=== PATIENT | male | born 1980 | race Caucasian/White ===

== ENCOUNTER → 2016-08-18 | Outpatient (CLI) | payer BC ==
[~2016-08-18] MED LIST: OXYC-57 PO
--- NOTE | 2016-08-18 10:28 | DIAGNOSTIC IMAGING REPORT ---
LEFT INGUINAL ULTRASOUND FOR HERNIA CLINICAL HISTORY: LEFT GROIN PAIN COMPARISON STUDY: None. FINDINGS: Small fat-containing reducible left inguinal hernia. No lymphadenopathy or fluid collections identified. IMPRESSION: Small fat-containing reducible left inguinal hernia. Electronically signed by: Gustavo Trujillo M.D. 08/18/2016 10:26 AM
== END | disposition home or self-care (01) ==
LOC: C.ULTRBC 09:47
PROVIDERS: ATTEND Family Medicine
DX: K40.90 Unilateral inguinal hernia, without obstruction or gangrene, not specified as recurrent (principal)

== ENCOUNTER → 2016-09-17 | Outpatient (CLI) | payer BC ==
[2016-09-17 17:39] LABS: BASO % 0.5 %; BASO ABS # 0.04 K/uL (0-0.2); COMPLETE YES; EOS % 1.4 %; HEMATOCRIT 45.2 % (42-52); IG% 0.5 %; LYMPH % 28.7 %; LYMPH ABS # 2.46 K/uL (1.2-3.4); MEAN CELL VOLUME 90.4 fL (80-100); MEAN CORPUSCULAR HEMOGLOBIN 33.4 pg (25-34); MEAN CORPUSCULAR HGB CONC 36.9 g/dl (32-36); MEAN PLATELET VOLUME 10.8 fL (7.4-10.4); NEUT % 57.9 %; PLATELET COUNT 167 K/uL (130-400); WHITE BLOOD COUNT 8.56 K/uL (4.8-10.8)
[2016-09-17 18:08] LABS: BLOOD UREA NITROGEN 15 mg/dl (7-18); BUN/CREATININE RATIO 13.8 (10-20); CALCIUM 9.3 mg/dl (8.5-10.1); CARBON DIOXIDE 29 mmol/L (21-32); CHLORIDE 103 mmol/L (98-107); GLUCOSE 89 mg/dl (70-99); SODIUM 140 mmol/L (136-145)
== END | disposition home or self-care (01) ==
LOC: C.LAB 16:34
PROVIDERS: ATTEND Surgery
DX: K40.90 Unilateral inguinal hernia, without obstruction or gangrene, not specified as recurrent (principal)

== ENCOUNTER → 2016-10-03 | Day surgery (SDC) | payer BC ==
[2016-09-25 08:27] VITALS: Ht 177.8 cm; Wt 76.4 kg
[~2016-10-03] VITALS: Ht 177.8 cm; Wt 76.4 kg
[~2016-10-03] MED LIST changes: +ATROPINE SULFATE 0.1 MG/ML 5ML SYR IV PRN; +BACITRACIN 50000 UNIT VIAL ONE; +BUPIVACAINE 0.5 % 5 MG/1 ML MPF 30ML VIAL ONE; +CEFAZOLIN SOD 1000MG/55 ML D5W IV ONE; +DEXAMETHASONE SOD INJ 4 MG/ML VIAL ONE; +EpHEDrine SULFATE INJ 50 MG/ML AMP IV PRN; +FENTANYL CITRATE INJ 50 MCG/1 ML 2 ML VIAL IV PRN; +FENTANYL CITRATE INJ 50 MCG/1 ML 2 ML VIAL ONE; +GLYCOPYRROLATE INJ 0.2 MG/ML VIAL ONE; +HYDROmorphone INJ 1 MG/ML SYR IV PRN; +LACTATED RINGER'S 1000ML 1,000 ML IV SCH; +LIDOCAINE HCL 2% 2 ML VIAL (20MG/ML) ONE; +MIDAZOLAM HCL 1 MG/ML 2ML VIAL ONE; +MoRPHine SULFATE 2 MG/ML CARP IV PRN; +NEOSTIGMINE METHYLSULFATE 5 MG/5 ML SYR ONE; +ONDANSETRON INJ 2 MG/ML 2 ML VIAL IV PRN; +ONDANSETRON INJ 2 MG/ML 2 ML VIAL ONE; +OXYCODONE/ACETAMINOPHEN 5-325 TAB PO PRN; +PROPOFOL IV EMULSION 10 MG/ML 20 ML VIAL IV ONE; +ROCURONIUM BROMIDE 10 MG/ML 5 ML VIAL ONE; +SODIUM CHLORIDE 0.9% INJ 10 ML VIAL ONE
--- NOTE | 2016-10-03 07:15 | History & Physical Bridge Note ---
H&P Re-Evaluation Bridge Note: I have examined the patient, reviewed the History & Physical and in the interval since the performance of the History & Physical I have noted the following changes of clinical significance: No changes noted pt marked SO at bedside
--- NOTE | 2016-10-03 08:13 | Discharge Instructions ---
Discharge Instructions Visit Reason for Visit: Left Inguinal Hernia Discharge Discharge Diagnosis / Problem: Inguinal hernia repair Activity Recommendations Activity Limitations: as noted below Lifting Limitations: no more than 10 pounds Shower/Bathe: tomorrow Driving or Machine Use: resume 3 days after discharge Anesthesia . Post Anesthesia Instructions: If you have had General Anesthesia or IV Sedation: * Do not drive today. * Resume driving when surgeon permits. * Do not make important decisions or sign legal documents today. * Call surgeon for: 1. Temperature elevations greater than 101 degrees F. 2. Uncontrollable pain. 3. Excessive bleeding. 4. Persistent nausea and vomiting. 5. Medication intolerance (nausea, vomiting or rash). * For nausea and vomiting use only clear liquids such as: tea, soda, bouillon until nausea subsides, then gradually increase diet as tolerated. * If you have any concerns or questions, call your surgeon's office. If physician is unavailable and it is an emergency, call 911 or go to the nearest emergency room. . Instructions / Follow-Up Instructions / Follow-Up Dr. Cherry's office in 1 week, call [phone] if you do not already have an appt or with any questions Ice groin off and on alternating every 20 minutes until bedtime Diet Recommendations Recommended Home Diet: no limitations Pending Studies Studies pending at discharge: no Medical Emergencies . Who to Call and When: Medical Emergencies: If at any time you feel your situation is an emergency, please call 911 immediately. . Non-Emergent Contact Call Non-Emergent contact if: you have a fever, temperature is above 101.5, your pain is not controlled, wound has increased redness, wound has increased pain . . "Provider Documentation" section prepared by Timmy Rangel.
--- NOTE | 2016-10-03 09:16 | [facility] Post Operative Brief Note ---
Immediate Operative Summary Operative Date Oct 03, 2016. Pre-Operative Diagnosis Left Inguinal Hernia Post-Operative Diagnosis Same and Direct Hernia, Lipoma of the Cord Procedure(s) Performed Left Inguinal Open Hernia Repair With marlex Mesh and excision lipoma cord Surgeon Dr. Cherry [employer] Surgeon(s) Alex Rangel PA-C Estimated Blood Loss 3.5ml Findings direct defect and large lipoma cord Specimens A. Left Inguinal Cord and Lipoma
--- NOTE | 2016-10-03 09:50 | OPERATIVE REPORT ---
DATE OF OPERATION: 10/03/2016 SURGEON: Dr. Cherry. ANALYTICAL TECH: Timmy Rogers PA-C. PREOPERATIVE DIAGNOSIS: Left inguinal hernia. POSTOPERATIVE DIAGNOSES: Left direct inguinal hernia and lipoma of the cord. PROCEDURE: Open repair of left direct inguinal hernia with Marlex mesh reinforcement and excision lipoma of the cord. SUMMARY: The patient was brought into the operating room theater under general anesthesia. The left lower quadrant was prepped and scrubbed with solution of Betadine. We used 0.5% Marcaine without epinephrine to infiltrate 2 fingerbreadths medial anterior superior iliac crest. Skin wheal was raised and then went subfascially external oblique. An incision about 2.5 to 3 inches long was made parallel to the inguinal ligament, deepened through subcutaneous tissue. Small vessels that were prominent venous were ligated with 2-0 silk. We went onto the external oblique. More local was used on the external oblique . Then we opened the fascia of the external oblique all the way to the external ring. We could see at the external ring there was some incarcerated chronic type of fatty tissue. At this point, we identified the nerve and placed it superiorly and bifurcated half way up into the canal, placed this superiorly underneath the hemostats that were tagged onto the external oblique. We elevated the cord and its structure over a Ennice drain, identified large lipoma that we freed from the cord, and ligated at its base with 2-0 silk and resected it. We similarly identified a direct defect, no real indirect component, that we were able to return retroperitoneally only by placing some transversalis fascia, 3-0 silk sutures just to get it out of the way. The floor itself was weak and we similarly used a few more 3-0 interrupted silk sutures to approximate the few fibers of transversalis fascia. We then eventually would find another lipoma which was smaller in nature, probably at base of 1 cm along the cord structure that was resected. At this point, once this has been completed, we brought in a sheet of Marlex mesh and used 2-0 Prolene. We onlaid and sutured it onto the symphysis pubis shelving portion of the inguinal ligament, superiorly onto the conjoined tendon, reconstructed the internal ring after we placed the nerve along the cord structures that could only accommodate the tip of hemostats. The mesh and the cord was then placed subfascial to the external oblique using 3-0 interrupted silk sutures, 2-0 Dexon subcutaneous, samantha for skin edges. Dressing was applied. The procedure was tolerated well by the patient and was taken to recovery room in good condition. I attest to the content of the Intraoperative Record and any orders documented therein. Any exceptions are noted below. MTDD
[2016-10-03 10:01] VITALS: TEMP 36.6
[2016-10-03 10:27] VITALS: BP 132/78; PULSE 56; O2SAT 100
--- NOTE | 2016-10-03 10:34 | Anesthesia Progress Nt - [facility] ---
Anesthesia Post Op Note Date & Time Oct 03, 2016 at 10:34 Vital Signs Pain Intensity: 0 Vital Signs Past 12 Hours Date Time Temp Pulse Resp B/P Pulse Ox O2 Delivery O2 Flow Rate FiO2 10/03/16 10:27 56 16 132/78 100 Room Air 10/03/16 10:01 36.6 55 16 130/80 98 Room Air 10/03/16 09:54 36.6 65 12 141/83 98 Room Air 10/03/16 09:48 141/83 10/03/16 09:46 79 19 10/03/16 09:46 83 19 99 10/03/16 09:43 144/98 10/03/16 09:41 77 15 100 10/03/16 09:41 77 15 10/03/16 09:38 144/97 10/03/16 09:36 85 19 10/03/16 09:36 79 19 100 10/03/16 09:35 75 13 10/03/16 09:35 76 13 100 10/03/16 09:33 126/102 10/03/16 09:30 94 17 100 10/03/16 09:30 92 17 10/03/16 09:29 140/94 10/03/16 09:25 86 18 144/108 100 10/03/16 09:25 86 18 10/03/16 09:25 36.5 86 16 144/108 98 Diffusion Mask 6 10/03/16 07:06 36.8 69 18 135/76 100 Room Air Notes Mental Status: alert / awake / arousable, participated in evaluation Pt Amnestic to Procedure: Yes Nausea / Vomiting: adequately controlled Pain: adequately controlled Airway Patency, RR, SpO2: stable & adequate BP & HR: stable & adequate Hydration State: stable & adequate Anesthetic Complications: no major complications apparent
== END | disposition home or self-care (01) ==
LOC: X.SURG 06:54
PROVIDERS: ATTEND Surgery
DX: K40.90 Unilateral inguinal hernia, without obstruction or gangrene, not specified as recurrent (principal); D17.6 Benign lipomatous neoplasm of spermatic cord